=== PATIENT | male | born 1950 | race Caucasian/White ===

== ENCOUNTER 2017-08-11 12:18 | Emergency (ER) | payer MEDICARE ==
[2017-08-11] MEDS ORDERED: NS 0.9% 1000 ML* 1,000 ML IV ONE (13:13)
[2017-08-11] MEDS ORDERED: Glucagon* 1 MG VIAL IV ONE (13:14)
--- NOTE | 2017-08-11 13:36 | RAD ---
INDICATION: Chest pain COMPARISON: None TECHNIQUE: An AP portable view obtained at 1320 hours is submitted. FINDINGS: Bones/Soft Tissues: There are no acute bony findings. Cardiomediastinal: The cardiomediastinal silhouette is normal. Lungs: There are no infiltrates. Pleura: There are no pleural effusions. Other: None IMPRESSION: NO ACTIVE DISEASE.
[2017-08-11 13:48] LABS: ABS Basophils 0 10^3/ul (0-0.2); ABS Eosinophils 0 10^3/ul (0-0.6); ABS Lymphocytes 0.5 10^3/ul (1.0-4.8); ABS Monocytes 0.4 10^3/ul (0-0.8); ABS Neutrophils 8.4 10^3/ul (1.5-7.7); ABS Nucleated RBC 0 10^3/ul; Eosinophil % 0.3 % (0-6); Hematocrit 42 % (42-52); Lymphocyte % 5.4 % (25-47); Mean Corpuscular HGB Conc 34 g/dl (31-36); Mean Corpuscular Hemoglobin 32 pg (27-31); Mean Corpuscular Volume 95 fL (80-94); Mean Platelet Volume 7.1 um3 (7.4-10.4); Nucleated Red Blood Cells % 0; Platelet Count 249 10^3/ul (150-450); Red Blood Count 4.37 10^6/ul (4.0-5.4); Red Cell Distribution Width 14 % (10.5-15); White Blood Count 9.3 10^3/ul (3.5-10.8)
[2017-08-11 13:55] LABS: INR 0.84 (0.77-1.02)
[2017-08-11 14:05] LABS: EGFR Non-African American 82.9 (>60)
[2017-08-11] MEDS ORDERED: fentaNYL* 50 MCG/ML 2 ML VIAL (100 MCG VIAL) ONE (16:08)
[2017-08-11] MEDS ORDERED: Midazolam* 1 MG/ML 10 ML VIAL (10 MG) ONE (16:08)
--- NOTE | 2017-08-11 18:22 | ED ---
Gerardo Strong Julia, scribed for Davis Charles on 08/11/17 at 1321 . Throat Pain/Nasal Congestion - HPI Summary HPI Summary: This patient is a 67 year old M presenting to [facility] accompanied by his with a chief complaint of having a piece of sausage stuck in his throat since this morning. He reports a history of having esophageal spasms occurring roughly twice in the past year. He describes current spasms as painful. Pain is 10/10 in severity. Pt reports stress test in the past year, without any significant findings. - History of Current Complaint Chief Complaint: EDThroatPain Time Seen by Provider: 08/11/17 13:06 Hx Obtained From: Patient Onset/Duration: Sudden Onset, Lasting Hours Associated Signs And Symptoms: Positive: FB Sensation Cough: None - Allergies/Home Medications Allergies/Adverse Reactions: Allergies Allergy/AdvReac Type Severity Reaction Status Date / Time No Known Allergies Allergy Verified 08/11/17 12:33 Home Medications: Home Medications NK [No Home Medications Reported] 08/11/17 [History Confirmed 08/11/17] PMH/Surg Hx/FS Hx/Imm Hx Cardiovascular History: Reports: Hx Hypertension EENT History: Denies: Hx Deafness - Immunization History Immunizations Up to Date: Yes Infectious Disease History: No Infectious Disease History: Denies: Traveled Outside the [place] in Last 30 Days - Family History Known Family History: Positive: Hypertension - Social History Alcohol Use: None Substance Use Type: Reports: None Smoking Status (MU): Never Smoked Tobacco Review of Systems Positive: Other - FB sensation Positive: Chest Pain - "esophogus spasm" All Other Systems Reviewed And Are Negative: Yes Physical Exam - Summary Physical Exam Summary: Appearance: Well appearing, no pain distress Skin: warm, dry, reflects adequate perfusion Head/face: normal Eyes: EOMI, JUANJO ENT: normal Neck: supple, non-tender Respiratory: CTA, breath sounds present Cardiovascular: RRR, pulses symmetrical Abdomen: non-tender, soft Bowel: present Musculoskeletal: normal, strength/ROM intact Neuro: normal, sensory motor intact, A&Ox3 Triage Information Reviewed: Yes Vital Signs On Initial Exam: Initial Vitals Temp Pulse Resp BP Pulse Ox 97.9 F 90 18 174/93 99 08/11/17 12:29 08/11/17 12:29 08/11/17 12:29 08/11/17 12:29 08/11/17 12:29 Vital Signs Reviewed: Yes Diagnostics - Vital Signs Vital Signs Temp Pulse Resp BP Pulse Ox 08/11/17 12:29 97.9 F 90 18 174/93 99 - Laboratory Lab Results: Lab Results 08/11/17 08/11/17 08/11/17 Range/Units 13:25 13:25 13:25 WBC 9.3 (3.5-10.8) 10^3/ul RBC 4.37 (4.0-5.4) 10^6/ul Hgb 14.0 (14.0-18.0) g/dl Hct 42 (42-52) % MCV 95 H (80-94) fL MCH 32 H (27-31) pg MCHC 34 (31-36) g/dl RDW 14 (10.5-15) % Plt Count 249 (150-450) 10^3/ul MPV 7.1 L (7.4-10.4) um3 Neut % (Auto) 90.2 H (38-83) % Lymph % (Auto) 5.4 L (25-47) % [place] % (Auto) 3.8 (0-7) % Eos % (Auto) 0.3 (0-6) % Baso % (Auto) 0.3 (0-2) % Absolute Neuts (auto) 8.4 H (1.5-7.7) 10^3/ul Absolute Lymphs (auto) 0.5 L (1.0-4.8) 10^3/ul Absolute Monos (auto) 0.4 (0-0.8) 10^3/ul Absolute Eos (auto) 0 (0-0.6) 10^3/ul Absolute Basos (auto) 0 (0-0.2) 10^3/ul Absolute Nucleated RBC 0 10^3/ul Nucleated RBC % 0 INR (Anticoag Therapy) 0.84 (0.77-1.02) APTT 26.6 (26.0-36.3) seconds Sodium 140 (139-145) mmol/L Potassium 4.1 (3.5-5.0) mmol/L Chloride 105 (101-111) mmol/L Carbon Dioxide 27 (22-32) mmol/L Anion Gap 8 (2-11) mmol/L BUN 21 (6-24) mg/dL Creatinine 0.91 (0.67-1.17) mg/dL Est GFR ( Amer) 106.6 (>60) Est GFR (Non-Af Amer) 82.9 (>60) BUN/Creatinine Ratio 23.1 H (8-20) Glucose 119 H (70-100) mg/dL Calcium 9.5 (8.6-10.3) mg/dL Total Bilirubin 0.50 (0.2-1.0) mg/dL AST 26 (13-39) U/L ALT 22 (7-52) U/L Alkaline Phosphatase 60 (34-104) U/L Troponin I 0.00 (<0.04) ng/mL Total Protein 7.3 (6.4-8.9) g/dL Albumin 4.1 (3.2-5.2) g/dL Globulin 3.2 (2-4) g/dL Albumin/Globulin Ratio 1.3 (1-3) Result Diagrams: 08/11/17 13:25 08/11/17 13:25 Lab Statement: Any lab studies that have been ordered have been reviewed, and results considered in the medical decision making process. - Radiology CXR Radiology Interpretation Completed By: Radiologist - NO ACTIVE DISEASE. ED Physician has reviewed this report. - EKG 1427 Cardiac Rate: NL EKG Rhythm: Sinus Rhythm - 81 BPM EKG Interpretation: no acute changes EENT Course/Dx - Course Course Of Treatment: 67 year old M presenting to [facility] accompanied by his with a chief complaint of having a piece of sausage stuck in his throat since this morning. He reports a history of having esophageal spasms occurring roughly twice in the past year. An EKG and CXR reveal no acute findings. Bloodwork is unremarkable. Patient is given Glucagon, Fenanyl, and Versed. Symptoms improved while in ED. Patient will be discharged. - Differential Diagnoses Differential Diagnoses: Other - Dysphagia/foreign body esophagus/vomiting - Diagnoses Provider Diagnoses: Foreign body in esophagus - Critical Care Time Critical Care Time: 30-74 min Discharge - Sign-Out/Discharge Documenting (check all that apply): Discharge/Admit/Transfer - Discharge Plan Condition: Stable Disposition: HOME Patient Education Materials: Foreign Body Ingestion (ED) Referrals: Loraine Fink [Primary Care Provider] - 3 Days (Follow up with your primary care provider.) - Billing Disposition and Condition Condition: STABLE Disposition: HOME The documentation as recorded by the Gerardo hartman Julia accurately reflects the service I personally performed and the decisions made by , Dvais Charles.
[2017-08-11 19:23] VITALS: BP 140/78
--- NOTE | 2017-08-11 23:06 | CONS ---
GASTROENTEROLOGY CONSULTATION DATE: 08/11/17 - EMERGENCY DEPT CONSULTING PHYSICIAN: Davis Charles, emergency room. REASON FOR CONSULTATION: Meat bolus impaction in the esophagus since this morning. 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 He knew the food was stuck inside him,though he thought it might resolve as other episodes have done. He got through the acupuncture session, which was just a half mile from the hospital and then came here. He has never been at this institution before, getting most, all of his medical care in [place] at [facility]. He initially says he has not had any gastrointestinal problems and then issues emerged. He has given up eating steak and certain types of fish because of recurring impactions and pain. He notes that burgers, especially if they are overcooked, may stick and it is quite painful for 5 minutes. He takes Tums 1 or 2 times a month. All of these symptoms were initially not recalled and then emerged with a repeat question. He thinks 5 years ago he had an upper endoscopy in [place] and was told there was nothing there. To his recollection, he has had heartburn. He is not having that now. PAST MEDICAL HISTORY: 1. Appendectomy, age 17. 2. Cholecystectomy, age 52. 3. Colon polyps. MEDICATIONS: He takes ibuprofen for his low back. FAMILY HISTORY: He was adopted and does not know any family history. SOCIAL HISTORY: He is , retired from [employer]. His is a strainer cleaner and [employer] bookkeeper. She will be his tow driver. REVIEW OF SYSTEMS: He denies any history of seizures, migraines, syncope, OK, heart failure, heart murmur, hemoptysis, TB, jaundice, hepatitis, gross hematuria. PHYSICAL EXAM: He is a tall, regularly built middle-aged man appearing a little younger than stated age. HEENT exam is unremarkable. He has no adenopathy. His lungs are clear and heart sounds are regular. The abdomen is soft and nontender. There is a right lower quadrant scar. Rectal: Deferred. Extremities show no edema. Neurologic is nonfocal. DIAGNOSTIC STUDIES/LAB DATA: CBC: Hemoglobin 14.0, hematocrit 42, MCV 95, platelets 249. The chemistries are normal with normal LFTs. Albumin 4.1, creatinine 0.91. Chest x-ray - negative. IMPRESSION AND PLAN: This 67-year-old man has a fairly impressive background peptic history predicting he will have a stricture. At the moment, he needs upper endoscopy, dislodgement of the foreign body and he is aware there is a 2% to 5% chance of being admitted to deal with this. After that, it would likely be indicated to re-endoscope him and dilate a stricture potentially in conjunction with starting him on an antireflux regimen. [id number]/[facility] #: [id number] SAVANA
--- NOTE | 2017-08-12 12:46 | PRO ---
DATE: 08/11/17 - EMERGENCY DEPT REFERRING PHYSICIAN: Davis Charles PROCEDURE: Upper gastrointestinal endoscopy and dislodgement/advancement of esophageal meat bolus impaction (CLOtest). INDICATION: This 67-year-old man eat breakfast in a hurry today and felt things lodged. He was very uncomfortable. He has vomited up little bit of egg in the emergency room but still feels like water would not go down. He has not had any fever. See separate consult. ENDOSCOPIST: Dr. Saha. MEDICATIONS: Midazolam 5, fentanyl 75. FINDINGS: He is a healthy-appearing tall, older man with red hair roots. Informed consent was obtained with detailed discussion about possible outcomes. It was confirmed that his was returning. EGD Larynx - symmetric, limited views. Esophagus - easily entered and the mucosa is normal in the upper and mid esophagus and then there is a large slurry of retained debris. The scope could distend the esophagus and glide along distally and then slide some material into the gastric fundus. No particular pop or pressure was required. About a dozen such passes were done using the tip of the scope, has a shovel as it were to advance material into the stomach. One could recognize meat and egg. There was no particular dominant piece of meat but there certainly was large amount of retained material. It was advanced into the stomach. The mucosa of the mid and distal esophageal appeared normal. The EG junction was little bit irritated and possibly little bit restricted. Stomach - limited views were obtained. The cardia and fundus appeared normal. The EG junction appeared normal from below. There was no obvious hiatal hernia. The gastric antrum appeared normal. A CLOtest was taken. Duodenum - the pylorus was normal. In the bulb, there was a 3 mm ulcer, anterior wall. It was not particularly deep but clearly was a lesion. The second through fourth portions of the duodenum were normal. During withdrawal, the absence of erosive disease in the distal esophagus was confirmed. IMPRESSION: 1. Esophageal foreign body - complex and probably consisting of an initial large meat bolus causing retention of lots of additional material. 2. Gastroesophageal junction narrowing - suspected based on the history outlined in the consult. Return for dilation will be offered. 3. Suspected occult reflux disease - omeprazole 20 mg daily until he follows up. 4. Duodenal ulcer - could be from his sporadic use of ibuprofen or H. pylori or a combination. Addendum: Clotest negative [id number] #: [id number] [facility]
== END 2017-08-11 19:21 | disposition home or self-care (01) ==
LOC: ED 12:18
DX: T18.128A Food in esophagus causing other injury, initial encounter (principal); K22.2 Esophageal obstruction; K26.9 Duodenal ulcer, unspecified as acute or chronic, without hemorrhage or perforation
CPT/HCPCS: 36415; 71045; 80053; 84484; 85025; 85610; 85730; 87077; 93005; 96361; 96374; 99156; 99157; 99283; J1610; J2250; J3010